=== PATIENT | male | born 1980 | race African-American/Black ===

== ENCOUNTER 2016-05-25 17:19 | Emergency (ER) | payer MEDICAID ==
[~2016-05-25] VITALS: Ht 180.3 cm; Wt 72.6 kg
[2016-05-25 17:32] VITALS: BP 154/74
[2016-05-25] MEDS ORDERED: Bacitracin Oint UD TOPIC ONE (18:00)
[2016-05-25] MEDS ORDERED: Lidocaine 1% MPF 10mg/ml 5ml IM ONE (18:00)
[2016-05-25 18:30] VITALS: BP 154/74
[2016-05-25] MEDS ORDERED: BACITRACIN15 GM TOPIC (18:32)
[2016-05-25] MEDS ORDERED: BACTRIM DS TAB1 EAC1 ORAL (18:39)
--- NOTE | 2016-05-25 20:35 | Emergency Room Report ---
History of Present Illness General Chief Complaint: Skin Rash/Abscess Source: Patient Present Illness [facility] The patient is a 35-year-old male presenting with right thumb pain. The patient has noticed increasing pain and swelling to this area which began 3 days prior. The patient has noticed discharge from the area described as white. The patient denies any injury to the thumb. Pain is described as a 7/ 10 dull ache and is worse with touch. Pain is nonradiating. The patient does admit to mild numbing of the area. The patient denies biting his nails but does admit to cleaning the cuticles. The patient denies this ever happening before. The patient denies nausea, vomiting, fever, chills, night sweats Allergies: Coded Allergies: No Known Allergies (Unverified , 05/25/16) Patient History Past Medical History: see triage record Pertinent Family History: none Reviewed Nursing Documentation: PMH: Agreed, PSxH: Agreed Nursing Documentation-PMH Past Medical History: No History, Except For Review of Systems All Other Systems: negative except mentioned in HPI Physical Exam Vital Signs Date Time Temp Pulse Resp B/P Pulse Ox O2 Delivery O2 Flow Rate FiO2 05/25/16 17:28 98.4 67 16 154/74 99 Room Air Sp02 EP Interpretation: reviewed, normal General Appearance: no apparent distress, alert, GCS 15, non-toxic Head: normocephalic, atraumatic Eyes: bilateral eye PERRL, bilateral eye normal inspection ENT: hearing grossly normal, normal pharynx, no angioedema, normal voice Musculoskeletal: back normal, gait/station normal, normal range of motion, swelling, tender - There is tenderness to palpation over the palmar surface of the distal right thumb Neurologic: alert, oriented x3, responsive, motor strength/tone normal, sensory intact, speech normal Psychiatric: judgement/insight normal, memory normal, mood/affect normal, no suicidal/homicidal ideation Skin: normal color, warm/dry, well hydrated, other - There is swelling and erythema noted to the distal right thumb, volar surface distal to the IP joint Lymphatic: no adenopathy Procedures Incision and Drainage Incision and Drainage : Consent: Verbal Site: R thumb Blade Size: 11 I & D Procedure: betadine prep, sterile drapes applied, sterile dressing applied Wound Location: upper extremity Wound's Depth, Shape: superficial Wound Length (cm): 3 Wound Explored: contaminated Irrigated w/ Saline (ccs): 100 Anesthesia: 1% Lidocaine Volume Anesthetic (ccs): 4 Splint Applied?: No Sling Applied?: No Patient Tolerated: Well Complications: None Medical Decision Making PA Attestation Dr. Bazan is my supervising physician. Patient management was discussed with my supervising physician Diagnostic Impression: Primary Impression: Felon of finger ER Course The pt is a 35 yo M presenting for R thumb infection Differential diagnosis considered: Felon, paronychia, sprain, gout PE: Afebrile. NAD There is tenderness to palpation, edema, and erythema of the right thumb palmar surface distal DIP joint. SILT Betadine prep was used to clean the skin and surrounding area. One percent lidocaine without epinephrine was used to anesthetize the are of planned incision. A #11 blade was used to make an incision in the central area of fluctuance approximately 1/3 the size of the diameter of the abscess. Once the incision was made, purulent material was expressed with blood. Blunt dissection was then used to release loculations and expressed more purulent material. Once only blood appeared to be expressed from the incision, normal saline was used to irrigate the inside of the abscess. The wound was then cleaned and sterile dressing applied with bacitracin Pt will be DC'ed home with prescription for bacitracin and bactrim DS. The patient will follow up with primary care doctor. ER precautions are given Last Vital Signs Date Time Temp Pulse Resp B/P Pulse Ox O2 Delivery O2 Flow Rate FiO2 05/25/16 18:59 98.4 05/25/16 18:30 67 16 154/74 99 Room Air Status: improved Disposition: HOME, SELF-CARE Condition: Improved Scripts Trimethoprim/Sulfamethoxazole 160/800* (BACTRIM DS TABLET*) 1 Each Tablet 1 TAB ORAL TWICE A DAY, #14 TAB Prov: TERZIAN,RODOLFO P.A. 05/25/16 Bacitracin (Bacitracin) 28.4 Gm Oint...g. 1 APPLIC TOPIC THREE TIMES A DAY, #28 GM Prov: TERZIAN,RODOLFO P.A. 05/25/16 Patient Instructions: Fingertip Infection Additional Instructions: I discussed my findings with the patient. All questions and concerns have been answered. Treatment and medication compliance have been addressed. I advised the patient that they need to follow up with PMD in 3-5 days. Return to ED if symptoms worsen, new symptoms arise, or if needed for any reason. Patient verbalized understanding of discharge instructions. The patient is advised to keep the incised region clean and dry. RODOLFO CARLSON May 25, 2016 20:35
== END 2016-05-25 18:30 | disposition home or self-care (01) ==
LOC: EMR 17:40
DX: L03.011 Cellulitis of right finger (principal)
CPT/HCPCS: 10060; 99284; Z7502

== ENCOUNTER 2017-08-25 06:58 | Inpatient (IN) | payer MEDICAID ==
[~2017-08-25] VITALS: Ht 180.3 cm; Wt 75.3 kg
[~2017-08-25 06:58] MED LIST: BACITRACIN15 GM TOPIC; BACTRIM DS TAB1 EAC1 ORAL
[2017-08-25] MEDS ORDERED: Isovue-300 100ml vial INJ PRN (07:15)
[2017-08-25] MEDS ORDERED: Morphine Sulfate 4mg/ml Inj IVP ONE ×3 (07:30→09:30)
--- NOTE | 2017-08-25 07:38 | Emergency Room Report ---
History of Present Illness General Chief Complaint: Abdominal Pain Source: Patient Present Illness HPI This patient states that last night he started having mild pain in his right lower abdomen. He states that since that time the pain has become more severe and has migrated into his epigastric region. He has had a little bit of nausea but no vomiting. He had a normal bowel movement today. That provided no relief. He denies fever or chills. He denies dysuria or hematuria. He has never had any similar symptoms. He is HIV positive and does have a viral load around 70,000. He also has a CD4 count just below 200. He states that he had taken a break on the HIV meds and had previously been undetectable. He states that he is back on his HIV meds because of the viral load and CD4 count. Otherwise he has no other complaints. He denies chest pain shortness of breath. He denies cough or congestion. He denies neck pain or headache. He denies back pain. He denies weakness. He has never had any AIDS defining illnesses. Allergies: Coded Allergies: No Known Allergies (Unverified , 05/25/16) Patient History Past Medical History: see triage record, HIV Past Surgical History: other - L. Inguinal hernia repair. Social History: Denies: smoking, alcohol use, drug use Reviewed Nursing Documentation: PMH: Agreed; PSxH: Agreed Review of Systems All Other Systems: negative except mentioned in HPI Physical Exam Vital Signs Date Time Temp Pulse Resp B/P (MAP) Pulse Ox O2 Delivery O2 Flow Rate FiO2 08/25/17 07:01 98.3 68 16 122/75 99 Room Air 98.2 Sp02 EP Interpretation: reviewed, normal General Appearance: no apparent distress, alert, GCS 15, non-toxic Head: normocephalic, atraumatic Eyes: bilateral eye normal inspection, bilateral eye PERRL ENT: hearing grossly normal, normal pharynx, no angioedema, normal voice Neck: full range of motion, supple/symm/no masses Respiratory: chest non-tender, lungs clear, normal breath sounds, speaking full sentences Cardiovascular #1: regular rate, rhythm, no edema Gastrointestinal: normal bowel sounds, non-distended, no rebound, guarding - voluntary gaurding, tenderness - TTP throughout, more severe in epigastrium Rectal: deferred Musculoskeletal: back normal, gait/station normal, normal range of motion, non- tender Neurologic: alert, oriented x3, responsive, motor strength/tone normal, sensory intact, speech normal Psychiatric: judgement/insight normal, memory normal, mood/affect normal, no suicidal/homicidal ideation Skin: normal color, no rash, warm/dry, well hydrated Medical Decision Making Diagnostic Impression: Primary Impression: Abdominal pain Additional Impression: Enteritis ER Course This patient presented with abdominal pain. He was quite tender on physical exam, so I felt that I should obtain a CT of his abdomen and pelvis. The CT showed some findings consistent with dilated small bowel loops and usually M. The extrahepatic bile ducts are dilated including the common Bile duct. The patient is also found to be thrombocytopenic with a borderline enlarged spleen. The patient continued to have severe pain requiring narcotic IV pain medications. I felt that this patient should be admitted for further monitoring and assessment by a curtain roller assembler and possibly a general surgeon. Patient is admitted to the medical surgical floor. Laboratory Tests Test 08/25/17 07:10 08/25/17 09:14 White Blood Count 4.5 K/UL (4.8-10.8) L Red Blood Count 5.00 M/UL (4.70-6.10) Hemoglobin 14.2 G/DL (14.2-18.0) Hematocrit 42.3 % (42.0-52.0) Mean Corpuscular Volume 85 FL (80-99) Mean Corpuscular Hemoglobin 28.4 PG (27.0-31.0) Mean Corpuscular Hemoglobin Concent 33.6 G/DL (32.0-36.0) Red Cell Distribution Width 12.3 % (11.6-14.8) Platelet Count 55 K/UL (150-450) L Mean Platelet Volume 10.5 FL (6.5-10.1) H Neutrophils (%) (Auto) % (45.0-75.0) Lymphocytes (%) (Auto) % (20.0-45.0) Monocytes (%) (Auto) % (1.0-10.0) Eosinophils (%) (Auto) % (0.0-3.0) Basophils (%) (Auto) % (0.0-2.0) Differential Total Cells Counted 100 Neutrophils % (Manual) 70 % (45-75) Lymphocytes % (Manual) 20 % (20-45) Monocytes % (Manual) 4 % (1-10) Eosinophils % (Manual) 4 % (0-3) H Basophils % (Manual) 1 % (0-2) Band Neutrophils 1 % (0-8) Platelet Estimate Decreased L Platelet Morphology Normal Red Blood Cell Morphology Normal Sodium Level 140 MMOL/L (136-145) Potassium Level 4.4 MMOL/L (3.5-5.1) Chloride Level 104 MMOL/L (98-107) Carbon Dioxide Level 29 MMOL/L (21-32) Anion Gap 7 mmol/L (5-15) Blood Urea Nitrogen 10 mg/dL (7-18) Creatinine 1.1 MG/DL (0.55-1.30) Estimate Glomerular Filtration Rate > 60 mL/min (>60) Glucose Level 141 MG/DL (74-106) H Calcium Level 8.7 MG/DL (8.5-10.1) Total Bilirubin 0.1 MG/DL (0.2-1.0) L Aspartate Amino Transferase (AST) 22 U/L (15-37) Alanine Aminotransferase (ALT) 26 U/L (12-78) Alkaline Phosphatase 62 U/L (46-116) Total Protein 8.0 G/DL (6.4-8.2) Albumin 3.8 G/DL (3.4-5.0) Globulin 4.2 g/dL Albumin/Globulin Ratio 0.9 (1.0-2.7) L Lipase 99 U/L (73-393) Urine Color Pale yellow Urine Appearance Clear Urine pH 5 (4.5-8.0) Urine Specific [place] 1.010 (1.005-1.035) Urine Protein Negative (NEGATIVE) Urine Glucose (UA) Negative (NEGATIVE) Urine Ketones Negative (NEGATIVE) Urine Occult Blood Negative (NEGATIVE) Urine Nitrite Negative (NEGATIVE) Urine Bilirubin Negative (NEGATIVE) Urine Urobilinogen Normal MG/DL (0.0-1.0) Urine Leukocyte Esterase Negative (NEGATIVE) CT/MRI/US Diagnostic Results CT/MRI/US Diagnostic Results : Imaging Test Ordered: CT abd/pelvis, US abdomen Impression See official reports in EMR. Findings consistent with enteritis and dilated extrahepatic ducts. Last Vital Signs Date Time Temp Pulse Resp B/P (MAP) Pulse Ox O2 Delivery O2 Flow Rate FiO2 08/25/17 07:01 98.3 68 16 122/75 99 Room Air 98.2 Disposition: ADMITTED INPATIENT Condition: Stable Referrals: NON PHYSICIAN (PCP) JIM BETTS D.O. August 25, 2017 07:37
[2017-08-25 07:48] LABS: HEMATOCRIT 42.3 % (42.0-52.0); HEMOGLOBIN 14.2 G/DL (14.2-18.0); MEAN CORPUSCULAR VOLUME 85 FL (80-99); PLATELET COUNT 55 K/UL (150-450); RED CELL DISTRIBUTION WIDTH 12.3 % (11.6-14.8); WHITE BLOOD COUNT 4.5 K/UL (4.8-10.8)
[2017-08-25 07:54] LABS: ANION GAP 7 mmol/L (5-15); BLOOD UREA NITROGEN 10 mg/dL (7-18); CALCIUM 8.7 MG/DL (8.5-10.1); CARBON DIOXIDE 29 MMOL/L (21-32); CHLORIDE 104 MMOL/L (98-107); CREATININE 1.1 MG/DL (0.55-1.30); POTASSIUM 4.4 MMOL/L (3.5-5.1); SODIUM 140 MMOL/L (136-145)
[2017-08-25 08:00] LABS: ALANINE AMINOTRANSFERASE 26 U/L (12-78); ALBUMIN 3.8 G/DL (3.4-5.0); ALBUMIN/GLOBULIN RATIO 0.9 (1.0-2.7); ALKALINE PHOSPHATASE 62 U/L (46-116); ASPARTATE AMINO TRANSFERASE 22 U/L (15-37); BILIRUBIN,TOTAL 0.1 MG/DL (0.2-1.0)
[2017-08-25] MEDS ORDERED: Ketorolac 30mg Inj IV ONE (08:15)
[2017-08-25 08:32] VITALS: BP 122/75
--- NOTE | 2017-08-25 08:59 | Diagnostic Imaging Report ---
Clinical Indication: Mild pain in his right lower abdomen. Nausea but no vomiting Technique: No oral contrast utilized, per emergency room physician request IV administration nonionic contrast. Venous phase spiral acquisition obtained through the abdomen and pelvis. Multiplanar reconstructions were generated. Total dose length product 579.83 mGycm. CTDIvol(s) 11.42 mGy. Dose reduction achieved using automated exposure control Comparison: none Findings: Lack of enteric contrast limits assessment of the GI tract. The appendix is normal. There is no evidence of diverticulosis or diverticulitis. There is a small amount of free intraperitoneal fluid, within the pelvis and adjacent to the tip of the right hepatic lobe Some bowel loops are slightly dilated. Although there are some nondilated small bowel loops, there is no definite transition to distal nondilated small bowel, and the terminal ileum is also somewhat dilated and contains some small bowel feces. No free intraperitoneal air. The distal esophagus, stomach, duodenum are unremarkable. The liver is borderline enlarged. No focal abnormality. The gallbladder is unremarkable. The extrahepatic bile ducts are dilated, common bile duct measuring 11 mm in diameter. No downstream obstructive lesion is demonstrated, however. The pancreas is unremarkable. The spleen is borderline enlarged, measuring 13 cm long axis dimension. The adrenals are unremarkable. The kidneys are unremarkable. No pelvic mass or adenopathy. No retroperitoneal or mesenteric mass or adenopathy. The included lung bases are clear. The bones are unremarkable Impression: Limited assessment of the GI tract, due to lack of enteric contrast administration Somewhat prominent fluid-filled small bowel loops. Small bowel feces in the terminal ileum suggests stasis of contrast. Findings are nonspecific, could represent mild enteritis Normal appendix Borderline hepatomegaly Borderline splenomegaly The CT scanner at [facility] is accredited by the [employer] and the scans are performed using protocols designed to limit radiation exposure to as low as reasonably achievable to attain images of sufficient resolution adequate for diagnostic evaluation.
[2017-08-25 09:23] LABS: APPEARANCE,URINE CLEAR; BILIRUBIN, URINE NEGATIVE (NEGATIVE); COLOR,URINE PALE YELLOW; GLUCOSE, URINE (UA) NEGATIVE (NEGATIVE); KETONES,URINE NEGATIVE (NEGATIVE); LEUKOCYTE ESTERASE ,URINE NEGATIVE (NEGATIVE); NITRITE,URINE NEGATIVE (NEGATIVE); PH,URINE 5 (4.5-8.0); PROTEIN,URINE NEGATIVE (NEGATIVE); UROBILINOGEN,URINE NORMAL MG/DL (0.0-1.0)
[2017-08-25 09:30] VITALS: BP 121/70
[2017-08-25 10:50] VITALS: BP 102/62
[2017-08-25] MEDS ORDERED: [UNRECOGNIZED DRUG - OTHER] (11:01)
--- NOTE | 2017-08-25 11:21 | Diagnostic Imaging Report ---
Indication: Epigastric pain and nausea Technique: Victoria-scale and duplex images of the upper abdomen were obtained Comparison: Abdomen pelvis CT earlier the same day Findings: There is a small amount of free intraperitoneal fluid noted. Gallbladder demonstrates no stones. The gallbladder wall thickness is upper limits of normal. No pericholecystic fluid Sonographic Smith's sign is negative. Common bile duct measures 9 mm in diameter. No intrahepatic biliary ductal dilatation. Liver demonstrates slightly coarsened echogenicity. Portal vein and hepatic veins are patent. Pancreas is unremarkable. Spleen is unremarkable. Left kidney measures 11.5 cm in length. Right kidney measures 11.6 cm length. Both kidneys demonstrate normal echogenicity. There is no hydronephrosis. There is suggestion of some cortical scarring of both kidneys . Non-aneurysmal abdominal aorta . Impression: Small amount of free intraperitoneal fluid, also demonstrated on recent CT scan Negative for gallstones Mildly dilated extra hepatic bile ducts, downstream obstruction not excludable. Consider MRCP for better characterization if clinically indicated Likely coarsened hepatic echotexture, could indicate hepatocellular disease
[2017-08-25 12:00] VITALS: BP 107/59
--- NOTE | 2017-08-25 12:59 | GI Initial Consult Note ---
History of Present Illness General Date patient seen: August 25, 2017 Time patient seen: 13:07 Reason for Hospitalization: Abdominal Pain Referring physician: NANDA Reason for Consultation: ABDOMINAL PAIN Present Illness HPI This patient states that last night he started having mild pain in his right lower abdomen. He states that since that time the pain has become more severe and has migrated into his epigastric region. He has had a little bit of nausea but no vomiting. He had a normal bowel movement today. That provided no relief. He denies fever or chills. He denies dysuria or hematuria. He has never had any similar symptoms. He is HIV positive and does have a viral load around 70,000. He also has a CD4 count just below 200. He states that he had taken a break on the HIV meds and had previously been undetectable. He states that he is back on his HIV meds because of the viral load and CD4 count. Otherwise he has no other complaints. He denies chest pain shortness of breath. He denies cough or congestion. He denies neck pain or headache. He denies back pain. He denies weakness. He has never had any AIDS defining illnesses. GI consulted for CBD dilation as seen on recent CT/US. Pt seen, awake A&Ox4 NAD c/o of new onset of abdominal pain 01/10, stated started last night. Denies any ETOH, IVDA, or tobacco use. Labs reviewed. No anemia. No transaminitis. Normal lipase levels. CT AP reviewed showed mildly dilated extra hepatic bile ducts, downstream obstruction not excludable. No history of endoscopy / colonoscopy. Home Meds Active Scripts Trimethoprim/Sulfamethoxazole 160/800* (BACTRIM DS TABLET*) 1 Each Tablet, 1 TAB ORAL TWICE A DAY, #14 TAB Prov:TERZIAN,RODOLFO P.A. 05/25/16 Bacitracin (Bacitracin) 28.4 Gm Oint...g., 1 APPLIC TOPIC THREE TIMES A DAY, # 28 GM Prov:TERZIAN,RODOLFO P.A. 05/25/16 Reported Medications [bictarvy] No Conflict Check, 1 DAILY 08/25/17 Med list reviewed/reconciled: Yes Allergies: Coded Allergies: No Known Allergies (Unverified , 05/25/16) Patient History History Provided By: Patient, Medical Record [facility] Narrative Past Medical History: see triage record, HIV Past Surgical History: other - L. Inguinal hernia repair. Social History: Denies: smoking, alcohol use, drug use Reviewed Nursing Documentation: PMH: Agreed; PSxH: Agreed Social History: Denies: smoking, alcohol use, drug use, other Review of Systems All Other Systems: negative except mentioned in HPI Physical Exam Vital Signs Date Time Temp Pulse Resp B/P (MAP) Pulse Ox O2 Delivery O2 Flow Rate FiO2 08/25/17 07:01 98.3 68 16 122/75 99 Room Air 98.2 Sp02 EP Interpretation: reviewed, normal Labs Laboratory Tests Test 08/25/17 07:10 08/25/17 07:15 08/25/17 09:14 White Blood Count 4.5 K/UL (4.8-10.8) L Red Blood Count 5.00 M/UL (4.70-6.10) Hemoglobin 14.2 G/DL (14.2-18.0) Hematocrit 42.3 % (42.0-52.0) Mean Corpuscular Volume 85 FL (80-99) Mean Corpuscular Hemoglobin 28.4 PG (27.0-31.0) Mean Corpuscular Hemoglobin Concent 33.6 G/DL (32.0-36.0) Red Cell Distribution Width 12.3 % (11.6-14.8) Platelet Count 55 K/UL (150-450) L Mean Platelet Volume 10.5 FL (6.5-10.1) H Neutrophils (%) (Auto) % (45.0-75.0) Lymphocytes (%) (Auto) % (20.0-45.0) Monocytes (%) (Auto) % (1.0-10.0) Eosinophils (%) (Auto) % (0.0-3.0) Basophils (%) (Auto) % (0.0-2.0) Differential Total Cells Counted 100 Neutrophils % (Manual) 70 % (45-75) Lymphocytes % (Manual) 20 % (20-45) Monocytes % (Manual) 4 % (1-10) Eosinophils % (Manual) 4 % (0-3) H Basophils % (Manual) 1 % (0-2) Band Neutrophils 1 % (0-8) Platelet Estimate Decreased L Platelet Morphology Normal Red Blood Cell Morphology Normal Sodium Level 140 MMOL/L (136-145) Potassium Level 4.4 MMOL/L (3.5-5.1) Chloride Level 104 MMOL/L (98-107) Carbon Dioxide Level 29 MMOL/L (21-32) Anion Gap 7 mmol/L (5-15) Blood Urea Nitrogen 10 mg/dL (7-18) Creatinine 1.1 MG/DL (0.55-1.30) Estimat Glomerular Filtration Rate > 60 mL/min (>60) Glucose Level 141 MG/DL (74-106) H Calcium Level 8.7 MG/DL (8.5-10.1) Total Bilirubin 0.1 MG/DL (0.2-1.0) L Aspartate Amino Transf (AST/SGOT) 22 U/L (15-37) Alanine Aminotransferase (ALT/SGPT) 26 U/L (12-78) Alkaline Phosphatase 62 U/L (46-116) Total Protein 8.0 G/DL (6.4-8.2) Albumin 3.8 G/DL (3.4-5.0) Globulin 4.2 g/dL Albumin/Globulin Ratio 0.9 (1.0-2.7) L Lipase 99 U/L (73-393) Prothrombin Time 10.4 SEC (9.30-11.50) Prothromb Time International Ratio 1.0 (0.9-1.1) Activated Partial Thromboplast Time 25 SEC (23-33) Urine Color Pale yellow Urine Appearance Clear Urine pH 5 (4.5-8.0) Urine Specific [place] 1.010 (1.005-1.035) Urine Protein Negative (NEGATIVE) Urine Glucose (UA) Negative (NEGATIVE) Urine Ketones Negative (NEGATIVE) Urine Occult Blood Negative (NEGATIVE) Urine Nitrite Negative (NEGATIVE) Urine Bilirubin Negative (NEGATIVE) Urine Urobilinogen Normal MG/DL (0.0-1.0) Urine Leukocyte Esterase Negative (NEGATIVE) General Appearance: well appearing, no apparent distress, alert Head: normocephalic EENT: PERRL/EOMI, normal ENT inspection Neck: supple Respiratory: normal breath sounds, no respiratory distress Cardiovascular: normal rate Gastrointestinal: normal inspection, non tender, soft, normal bowel sounds, non -distended Rectal: deferred Genitourinary: deferred Musculoskeletal: normal inspection, back normal Neurologic: normal inspection, alert, oriented x3, responsive Psychiatric: normal inspection, judgement/insight normal, memory normal Skin: normal inspection, normal color, no rash, warm/dry, palpation normal, well hydrated Lymphatic: normal inspection, no adenopathy Current Medications Current Medications Medications (Trade) Dose Ordered Sig/Melinda Route PRN Reason Start Time Stop Time Status Last Admin Dose Admin Iopamidol (Isovue-300 100ml) 100 ml NOW PRN INJ Radiology Procedure 08/25/17 07:15 Sodium Chloride 1,000 ml @ 100 mls/hr Q10H ONCE IV 08/25/17 07:14 08/25/17 17:13 08/25/17 07:21 GI: Plan Problems: (1) Dilated cbd, acquired (2) Abdominal pain (3) Enteritis Plan CT AP reviewed >> Small bowel feces in the terminal ileum suggests stasis of contrast. abdominal U/S reviewed >> Mildly dilated extra hepatic bile ducts, downstream obstruction not excludable. symptomatic treatment adv diet zofran prn pain mgmt bowel regime ppi repeat labs Discussed with Dr. Esquivel. Thank you for this patient referral, we will follow. The patient was seen and examined at bedside and all new and available data was reviewed in the patients chart. I agree with the above findings, impression and plan. (Patient seen earlier today. Signature stamp does not reflect patient encounter time.). - MD Juana Pham AnhLeonard MINOR August 25, 2017 12:59
[2017-08-25] MEDS ORDERED: LORazepam 1mg tab ORAL PRN (13:15)
[2017-08-25] MEDS ORDERED: HYDROcodone/Acetamin 10/325 tab ORAL PRN (13:15)
[2017-08-25] MEDS ORDERED: Morphine Sulfate 4mg/ml Inj IVP PRN (13:30)
--- NOTE | 2017-08-25 15:08 | History and Physical ---
History of Present Illness General Date patient seen: August 25, 2017 Time patient seen: 12:00 Reason for Hospitalization: Abdominal Pain Present Illness HPI 36 y/o male with a PMH of HIV now AIDS with CD4 count less than 200 who presented to the ED for severe abdominal pain. Patient states that the pain started this morning on the RUQ area radiating to the left epigastric are . Reports nausea but no vomiting. CT a/p showed somewhat prominent fluid-filled small bowel loops. CBD 11mm. Normal appendix, borderline hepatomegaly and splenomegaly. Abdominal ultrassound was also done with results pending. Patient was further admitted. Denies chest pain, sob, f/c. He also states that he has been diagnosed with HIV since age 18 but was off of his HIV medications for the last 4 years. He states he recently got back on them and his recent CD4 count a month ago was less than 200 and started taking bactrim prophylactically. Allergies: Coded Allergies: No Known Allergies (Unverified , 05/25/16) Medication History Scheduled Bacitracin (Bacitracin), 1 APPLIC TOPIC THREE TIMES A DAY Trimethoprim/Sulfamethoxazole 160/800* (Bactrim Ds Tablet*), 1 TAB ORAL TWICE A DAY [bictarvy], 1 DAILY, (Reported) Patient History History Provided By: Patient Healthcare decision maker Resuscitation status Full Code Advanced Directive on File Review of Systems All Other Systems: negative except mentioned in HPI Physical Exam General Appearance: alert, moderate distress HEENT: normocephalic, atraumatic, PERRL Neck: non-tender, normal alignment, supple Respiratory/Chest: chest wall non-tender, lungs clear, normal breath sounds Cardiovascular/Chest: normal peripheral pulses, normal rate Abdomen: hypoactive bowel sounds, guarding, tender Extremities: normal range of motion, non-tender Skin Exam: normal pigmentation, warm/dry 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, no motor/sensory deficits, alert, oriented x 3 Last 24 Hour Vital Signs Date Time Temp Pulse Resp B/P (MAP) Pulse Ox O2 Delivery O2 Flow Rate FiO2 08/25/17 12:00 97.9 58 20 107/59 100 Room Air 97.9 08/25/17 11:08 98.0 70 16 102/62 100 Room Air 98.0 08/25/17 10:50 98.0 70 16 102/62 100 Room Air 98.0 08/25/17 09:37 36.8 08/25/17 09:36 36.8 08/25/17 09:36 98.3 08/25/17 09:36 36.8 08/25/17 09:36 98.3 08/25/17 09:30 98.0 72 17 121/70 100 Room Air 98.0 08/25/17 08:32 16 122/75 99 Room Air 08/25/17 08:32 98.3 08/25/17 08:32 98.3 08/25/17 07:43 98.3 08/25/17 07:01 98.3 68 16 122/75 99 Room Air 98.2 Laboratory Tests Test 08/25/17 07:10 08/25/17 07:15 08/25/17 09:14 White Blood Count 4.5 K/UL (4.8-10.8) L Red Blood Count 5.00 M/UL (4.70-6.10) Hemoglobin 14.2 G/DL (14.2-18.0) Hematocrit 42.3 % (42.0-52.0) Mean Corpuscular Volume 85 FL (80-99) Mean Corpuscular Hemoglobin 28.4 PG (27.0-31.0) Mean Corpuscular Hemoglobin Concent 33.6 G/DL (32.0-36.0) Red Cell Distribution Width 12.3 % (11.6-14.8) Platelet Count 55 K/UL (150-450) L Mean Platelet Volume 10.5 FL (6.5-10.1) H Neutrophils (%) (Auto) % (45.0-75.0) Lymphocytes (%) (Auto) % (20.0-45.0) Monocytes (%) (Auto) % (1.0-10.0) Eosinophils (%) (Auto) % (0.0-3.0) Basophils (%) (Auto) % (0.0-2.0) Differential Total Cells Counted 100 Neutrophils % (Manual) 70 % (45-75) Lymphocytes % (Manual) 20 % (20-45) Monocytes % (Manual) 4 % (1-10) Eosinophils % (Manual) 4 % (0-3) H Basophils % (Manual) 1 % (0-2) Band Neutrophils 1 % (0-8) Platelet Estimate Decreased L Platelet Morphology Normal Red Blood Cell Morphology Normal Sodium Level 140 MMOL/L (136-145) Potassium Level 4.4 MMOL/L (3.5-5.1) Chloride Level 104 MMOL/L (98-107) Carbon Dioxide Level 29 MMOL/L (21-32) Anion Gap 7 mmol/L (5-15) Blood Urea Nitrogen 10 mg/dL (7-18) Creatinine 1.1 MG/DL (0.55-1.30) Estimat Glomerular Filtration Rate > 60 mL/min (>60) Glucose Level 141 MG/DL (74-106) H Calcium Level 8.7 MG/DL (8.5-10.1) Total Bilirubin 0.1 MG/DL (0.2-1.0) L Aspartate Amino Transf (AST/SGOT) 22 U/L (15-37) Alanine Aminotransferase (ALT/SGPT) 26 U/L (12-78) Alkaline Phosphatase 62 U/L (46-116) Creatine Kinase MB 0.6 NG/ML (0.0-3.6) Total Protein 8.0 G/DL (6.4-8.2) Albumin 3.8 G/DL (3.4-5.0) Globulin 4.2 g/dL Albumin/Globulin Ratio 0.9 (1.0-2.7) L Lipase 99 U/L (73-393) Prothrombin Time 10.4 SEC (9.30-11.50) Prothromb Time International Ratio 1.0 (0.9-1.1) Activated Partial Thromboplast Time 25 SEC (23-33) Urine Color Pale yellow Urine Appearance Clear Urine pH 5 (4.5-8.0) Urine Specific [place] 1.010 (1.005-1.035) Urine Protein Negative (NEGATIVE) Urine Glucose (UA) Negative (NEGATIVE) Urine Ketones Negative (NEGATIVE) Urine Occult Blood Negative (NEGATIVE) Urine Nitrite Negative (NEGATIVE) Urine Bilirubin Negative (NEGATIVE) Urine Urobilinogen Normal MG/DL (0.0-1.0) Urine Leukocyte Esterase Negative (NEGATIVE) Height (Feet): 5 Height (Inches): 11.00 Weight (Pounds): 166 Medications Current Medications Medications (Trade) Dose Ordered Sig/Melinda Route PRN Reason Start Time Stop Time Status Last Admin Dose Admin Acetaminophen (Tylenol) 650 mg Q4H PRN ORAL fever 5/25/18 13:15 09/24/17 13:14 Acetaminophen/ Hydrocodone Bitart ([place] 10/325) 1 tab Q4H PRN ORAL Moderate Pain (Pain Scale 4-6) 08/25/17 13:15 09/01/17 13:14 Dextrose (Dextrose 50%) 25 ml STAT PRN IV Hypoglycemia 08/25/17 13:15 09/24/17 13:14 Dextrose (Dextrose 50%) 50 ml STAT PRN IV Hypoglycemia 08/25/17 13:15 09/24/17 13:14 Iopamidol (Isovue-300 100ml) 100 ml NOW PRN INJ Radiology Procedure 08/25/17 07:15 08/27/17 23:59 Lorazepam (Ativan) 1 mg Q4H PRN ORAL For Anxiety 08/25/17 13:15 09/01/17 13:14 Morphine Sulfate (Morphine Sulfate) 4 mg Q4H PRN IVP Severe Pain (Pain Scale 7-10) 08/25/17 13:30 09/01/17 13:29 08/25/17 13:40 Non-Formulary Medication (Non-Formulary Med) 1 ea DAILY ORAL 08/26/17 09:00 09/25/17 08:59 UNV Ondansetron HCl (Zofran) 4 mg Q6H PRN IVP Nausea & Vomiting 08/25/17 13:30 09/24/17 13:29 Polyethylene Glycol (Miralax) 17 gm BEDTIME ORAL 08/25/17 21:00 09/24/17 20:59 Sodium Chloride 1,000 ml @ 100 mls/hr Q10H IVLG 08/25/17 14:00 09/24/17 13:59 08/25/17 14:21 Sodium Chloride 1,000 ml @ 100 mls/hr Q10H ONCE IV 08/25/17 07:14 08/25/17 17:13 08/25/17 07:21 Trimethoprim/ Sulfamethoxazole (Bactrim-DS) 1 tab 3XW ORAL 08/28/17 09:00 09/04/17 08:59 Assessment/Plan Problem List: (1) Enteritis ICD Codes: K52.9 - Noninfective gastroenteritis and colitis, unspecified SNOMED: 07359588 (2) Abdominal pain ICD Codes: R10.9 - Unspecified abdominal pain SNOMED: 20430756 (3) Dilated cbd, acquired ICD Codes: K83.8 - Other specified diseases of biliary tract SNOMED: 404128159 (4) Thrombocytopenia associated with AIDS ICD Codes: B20 - Human immunodeficiency virus [HIV] disease; D69.59 - Other secondary thrombocytopenia SNOMED: 971383196 Status: stable, progressing Assessment/Plan - Admit to inpatient - 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 Borderline hepatomegaly, splenomegaly. CBD 11mm. - f/u abdominal U/S - LFTs and t. bili normal. continue to monitor - pain control and supportive care - zofran prn - IVF - CLD and ADAT - continue home HIV meds. Continue bactrim for ppx - check CD4 count - monitor plt. avoid HSQ DVT Prophylaxis: SCD Code Status: Full Hospital Classification Declaration: Based on this initial evaluation, and depending on the patient's clinical course, I anticipate that this patient will require hospitalization for 2-3 days for severe abd pain, CBD and close respiratory/hemodynamic monitoring. Disposition: Once the patient is stable to leave the hospital, I anticipate the patient will likely be discharged to the following environment: home I spent 71 minutes on this patient's case, and [45 minutes were dedicated to counseling and/or care coordination. Discussed with patient/family, nursing staff, SW/CM, general surgery, GI, nuclear reactor operator regarding clinical status, treatment course, and disposition planning. Time of note may not reflect time of encounter. Glenny Ybarra NP August 25, 2017 15:08
[2017-08-25 16:00] VITALS: BP 120/69
[2017-08-25 20:00] VITALS: BP 124/75
[2017-08-25] MEDS: Miralax 17gm pkt ORAL SCH (20:43)
[2017-08-25] MEDS: Bactrim-DS 1 tab ORAL SCH (21:09)
[2017-08-26] VITALS: BP 102/50
[2017-08-26 03:57] VITALS: BP 149/84
[2017-08-26 08:00] VITALS: BP 110/62
[2017-08-26 08:04] LABS: HEMATOCRIT 38.7 % (42.0-52.0); HEMOGLOBIN 13.6 G/DL (14.2-18.0); MEAN CORPUSCULAR VOLUME 83 FL (80-99); PLATELET COUNT 70 K/UL (150-450); RED BLOOD COUNT 4.68 M/UL (4.70-6.10); RED CELL DISTRIBUTION WIDTH 11.9 % (11.6-14.8); WHITE BLOOD COUNT 2.7 K/UL (4.8-10.8)
[2017-08-26 08:36] LABS: ALANINE AMINOTRANSFERASE 22 U/L (12-78); ALBUMIN 2.9 G/DL (3.4-5.0); ALBUMIN/GLOBULIN RATIO 0.8 (1.0-2.7); ALKALINE PHOSPHATASE 53 U/L (46-116); ANION GAP 7 mmol/L (5-15); ASPARTATE AMINO TRANSFERASE 16 U/L (15-37); BILIRUBIN,TOTAL 0.1 MG/DL (0.2-1.0); BLOOD UREA NITROGEN 15 mg/dL (7-18); CARBON DIOXIDE 27 MMOL/L (21-32); CHLORIDE 106 MMOL/L (98-107); CREATININE 1.1 MG/DL (0.55-1.30); POTASSIUM 3.7 MMOL/L (3.5-5.1); SODIUM 140 MMOL/L (136-145)
[2017-08-26 12:00] VITALS: BP 112/64
--- NOTE | 2017-08-26 14:18 | Internal Med Progress Note ---
Subjective Physician Name BladimirWilmer kramer Attending Physician Bibiana Wen MD Current Medications Medications (Trade) Dose Ordered Sig/Melinda Route PRN Reason Start Time Stop Time Status Last Admin Dose Admin Acetaminophen (Tylenol) 650 mg Q4H PRN ORAL fever 08/25/17 13:15 09/24/17 13:14 Acetaminophen/ Hydrocodone Bitart ([place] 10/325) 1 tab Q4H PRN ORAL Moderate Pain (Pain Scale 4-6) 08/25/17 13:15 09/01/17 13:14 Dextrose (Dextrose 50%) 25 ml STAT PRN IV Hypoglycemia 08/25/17 13:15 09/24/17 13:14 Dextrose (Dextrose 50%) 50 ml STAT PRN IV Hypoglycemia 08/25/17 13:15 09/24/17 13:14 Iopamidol (Isovue-300 100ml) 100 ml NOW PRN INJ Radiology Procedure 08/25/17 07:15 08/27/17 23:59 Lorazepam (Ativan) 1 mg Q4H PRN ORAL For Anxiety 08/25/17 13:15 09/01/17 13:14 Morphine Sulfate (Morphine Sulfate) 4 mg Q4H PRN IVP Severe Pain (Pain Scale 7-10) 08/25/17 13:30 09/01/17 13:29 08/25/17 13:40 Ondansetron HCl (Zofran) 4 mg Q6H PRN IVP Nausea & Vomiting 08/25/17 13:30 09/24/17 13:29 Patient Own Medication (Patient's Own Med) 1 ea QHS ORAL 08/25/17 22:00 09/24/17 21:59 08/25/17 21:22 Polyethylene Glycol (Miralax) 17 gm BEDTIME ORAL 08/25/17 21:00 09/24/17 20:59 08/25/17 20:43 Sodium Chloride 1,000 ml @ 100 mls/hr Q10H IVLG 08/25/17 14:00 09/24/17 13:59 08/26/17 10:32 Trimethoprim/ Sulfamethoxazole (Bactrim-DS) 1 tab 3XW ORAL 08/25/17 22:00 09/01/17 21:59 08/25/17 21:09 Allergies: Coded Allergies: No Known Allergies (Unverified , 05/25/16) Objective Last Vital Signs Date Time Temp Pulse Resp B/P (MAP) Pulse Ox O2 Delivery O2 Flow Rate FiO2 08/26/17 12:00 98.4 79 18 112/64 99 Room Air 98.4 Laboratory Tests Test 08/26/17 06:30 White Blood Count Pending Red Blood Count 4.68 M/UL (4.70-6.10) L Hemoglobin 13.6 G/DL (14.2-18.0) L Hematocrit 38.7 % (42.0-52.0) L Mean Corpuscular Volume 83 FL (80-99) Mean Corpuscular Hemoglobin 29.0 PG (27.0-31.0) Mean Corpuscular Hemoglobin Concent 35.1 G/DL (32.0-36.0) Red Cell Distribution Width 11.9 % (11.6-14.8) Platelet Count 70 K/UL (150-450) L Mean Platelet Volume 8.9 FL (6.5-10.1) Neutrophils (%) (Auto) % (45.0-75.0) Lymphocytes (%) (Auto) % (20.0-45.0) Monocytes (%) (Auto) % (1.0-10.0) Eosinophils (%) (Auto) % (0.0-3.0) Basophils (%) (Auto) % (0.0-2.0) Differential Total Cells Counted 100 Neutrophils % (Manual) 47 % (45-75) Lymphocytes % (Manual) 40 % (20-45) Monocytes % (Manual) 6 % (1-10) Eosinophils % (Manual) 7 % (0-3) H Basophils % (Manual) 0 % (0-2) Band Neutrophils 0 % (0-8) Lymphocytes Pending Platelet Estimate Decreased L Platelet Morphology Normal Sodium Level 140 MMOL/L (136-145) Potassium Level 3.7 MMOL/L (3.5-5.1) Chloride Level 106 MMOL/L (98-107) Carbon Dioxide Level 27 MMOL/L (21-32) Anion Gap 7 mmol/L (5-15) Blood Urea Nitrogen 15 mg/dL (7-18) Creatinine 1.1 MG/DL (0.55-1.30) Estimat Glomerular Filtration Rate > 60 mL/min (>60) Glucose Level 105 MG/DL (74-106) Calcium Level 8.0 MG/DL (8.5-10.1) L Total Bilirubin 0.1 MG/DL (0.2-1.0) L Aspartate Amino Transf (AST/SGOT) 16 U/L (15-37) Alanine Aminotransferase (ALT/SGPT) 22 U/L (12-78) Alkaline Phosphatase 53 U/L (46-116) Total Protein 6.5 G/DL (6.4-8.2) Albumin 2.9 G/DL (3.4-5.0) L Globulin 3.6 g/dL Albumin/Globulin Ratio 0.8 (1.0-2.7) L Percent CD3 Cells Pending Absolute CD3 Count Pending Percent CD4 Cells Pending Absolute CD4 Count Pending T-Lymphocyte CD4/CD8 Ratio Pending Percent CD8 Cells Pending Absolute CD8 Count Pending Microbiology Date/Time Source Procedure Growth Status 08/25/17 16:18 Urine,Clean Catch Urine Culture - Preliminary NO GROWTH Resulted Intake and Output 08/25/17 08/26/17 19:00 07:00 Intake Total 540 ml 1200 ml Output Total 1300 ml Balance 540 ml -100 ml Intake Oral 140 ml IV Total 400 ml 1200 ml Output Urine Total 1300 ml # Voids 3 1 Assessment/Plan Assessment/Plan No Known Allergies (Unverified , 05/25/16) Medication History Scheduled Bacitracin (Bacitracin), 1 APPLIC TOPIC THREE TIMES A DAY Trimethoprim/Sulfamethoxazole 160/800* (Bactrim Ds Tablet*), 1 TAB ORAL TWICE A DAY [bictarvy], 1 DAILY, (Reported) Patient History History Provided By: Patient Healthcare decision maker Resuscitation status Full Code Advanced Directive on File ROS Review of Systems All Other Systems: negative except mentioned in HPI Physical Exam Physical Exam General Appearance: alert, moderate distress HEENT: normocephalic, atraumatic, PERRL Neck: non-tender, normal alignment, supple Respiratory/Chest: chest wall non-tender, lungs clear, normal breath sounds Cardiovascular/Chest: normal peripheral pulses, normal rate Abdomen: hypoactive bowel sounds, guarding, tender Extremities: normal range of motion, non-tender Skin Exam: normal pigmentation, warm/dry 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, no motor/sensory deficits, alert, oriented x 3 Last 24 Hour Vital Signs Date Time Temp Pulse Resp B/P (MAP) Pulse Ox O2 Delivery O2 Flow Rate FiO2 08/25/17 12:00 97.9 58 20 107/59 100 Room Air 97.9 08/25/17 11:08 98.0 70 16 102/62 100 Room Air 98.0 08/25/17 10:50 98.0 70 16 102/62 100 Room Air 98.0 08/25/17 09:37 36.8 08/25/17 09:36 36.8 08/25/17 09:36 98.3 08/25/17 09:36 36.8 08/25/17 09:36 98.3 08/25/17 09:30 98.0 72 17 121/70 100 Room Air 98.0 08/25/17 08:32 16 122/75 99 Room Air 08/25/17 08:32 98.3 08/25/17 08:32 98.3 08/25/17 07:43 98.3 08/25/17 07:01 98.3 68 16 122/75 99 Room Air 98.2 Laboratory Tests Test 08/25/17 07:10 08/25/17 07:15 08/25/17 09:14 White Blood Count 4.5 K/UL (4.8-10.8) L Red Blood Count 5.00 M/UL (4.70-6.10) Hemoglobin 14.2 G/DL (14.2-18.0) Hematocrit 42.3 % (42.0-52.0) Mean Corpuscular Volume 85 FL (80-99) Mean Corpuscular Hemoglobin 28.4 PG (27.0-31.0) Mean Corpuscular Hemoglobin Concent 33.6 G/DL (32.0-36.0) Red Cell Distribution Width 12.3 % (11.6-14.8) Platelet Count 55 K/UL (150-450) L Mean Platelet Volume 10.5 FL (6.5-10.1) H Neutrophils (%) (Auto) % (45.0-75.0) Lymphocytes (%) (Auto) % (20.0-45.0) Monocytes (%) (Auto) % (1.0-10.0) Eosinophils (%) (Auto) % (0.0-3.0) Basophils (%) (Auto) % (0.0-2.0) Differential Total Cells Counted 100 Neutrophils % (Manual) 70 % (45-75) Lymphocytes % (Manual) 20 % (20-45) Monocytes % (Manual) 4 % (1-10) Eosinophils % (Manual) 4 % (0-3) H Basophils % (Manual) 1 % (0-2) Band Neutrophils 1 % (0-8) Platelet Estimate Decreased L Platelet Morphology Normal Red Blood Cell Morphology Normal Sodium Level 140 MMOL/L (136-145) Potassium Level 4.4 MMOL/L (3.5-5.1) Chloride Level 104 MMOL/L (98-107) Carbon Dioxide Level 29 MMOL/L (21-32) Anion Gap 7 mmol/L (5-15) Blood Urea Nitrogen 10 mg/dL (7-18) Creatinine 1.1 MG/DL (0.55-1.30) Estimat Glomerular Filtration Rate > 60 mL/min (>60) Glucose Level 141 MG/DL (74-106) H Calcium Level 8.7 MG/DL (8.5-10.1) Total Bilirubin 0.1 MG/DL (0.2-1.0) L Aspartate Amino Transf (AST/SGOT) 22 U/L (15-37) Alanine Aminotransferase (ALT/SGPT) 26 U/L (12-78) Alkaline Phosphatase 62 U/L (46-116) Creatine Kinase MB 0.6 NG/ML (0.0-3.6) Total Protein 8.0 G/DL (6.4-8.2) Albumin 3.8 G/DL (3.4-5.0) Globulin 4.2 g/dL Albumin/Globulin Ratio 0.9 (1.0-2.7) L Lipase 99 U/L (73-393) Prothrombin Time 10.4 SEC (9.30-11.50) Prothromb Time International Ratio 1.0 (0.9-1.1) Activated Partial Thromboplast Time 25 SEC (23-33) Urine Color Pale yellow Urine Appearance Clear Urine pH 5 (4.5-8.0) Urine Specific [place] 1.010 (1.005-1.035) Urine Protein Negative (NEGATIVE) Urine Glucose (UA) Negative (NEGATIVE) Urine Ketones Negative (NEGATIVE) Urine Occult Blood Negative (NEGATIVE) Urine Nitrite Negative (NEGATIVE) Urine Bilirubin Negative (NEGATIVE) Urine Urobilinogen Normal MG/DL (0.0-1.0) Urine Leukocyte Esterase Negative (NEGATIVE) Height (Feet): 5 Height (Inches): 11.00 Weight (Pounds): 166 Medications Current Medications Medications (Trade) Dose Ordered Sig/Melinda Route PRN Reason Start Time Stop Time Status Last Admin Dose Admin Acetaminophen (Tylenol) 650 mg Q4H PRN ORAL fever 08/25/17 13:15 09/24/17 13:14 Acetaminophen/ Hydrocodone Bitart ([place] [address]) 1 tab Q4H PRN ORAL Moderate Pain (Pain Scale 4-6) 08/25/17 13:15 09/01/17 13:14 Dextrose (Dextrose 50%) 25 ml STAT PRN IV Hypoglycemia 08/25/17 13:15 09/24/17 13:14 Dextrose (Dextrose 50%) 50 ml STAT PRN IV Hypoglycemia 08/25/17 13:15 09/24/17 13:14 Iopamidol (Isovue-300 100ml) 100 ml NOW PRN INJ Radiology Procedure 08/25/17 07:15 08/27/17 23:59 Lorazepam (Ativan) 1 mg Q4H PRN ORAL For Anxiety 08/25/17 13:15 09/01/17 13:14 Morphine Sulfate (Morphine Sulfate) 4 mg Q4H PRN IVP Severe Pain (Pain Scale 7-10) 08/25/17 13:30 09/01/17 13:29 08/25/17 13:40 Non-Formulary Medication (Non-Formulary Med) 1 ea DAILY ORAL 08/26/17 09:00 09/25/17 08:59 UNV Ondansetron HCl (Zofran) 4 mg Q6H PRN IVP Nausea & Vomiting 08/25/17 13:30 09/24/17 13:29 Polyethylene Glycol (Miralax) 17 gm BEDTIME ORAL 08/25/17 21:00 09/24/17 20:59 Sodium Chloride 1,000 ml @ 100 mls/hr Q10H IVLG 08/25/17 14:00 09/24/17 13:59 08/25/17 14:21 Sodium Chloride 1,000 ml @ 100 mls/hr Q10H ONCE IV 08/25/17 07:14 08/25/17 17:13 08/25/17 07:21 Trimethoprim/ Sulfamethoxazole (Bactrim-DS) 1 tab 3XW ORAL 08/28/17 09:00 09/04/17 08:59 Assessment/Plan Assessment/Plan Problem List: (1) Enteritis ICD Codes: K52.9 - Noninfective gastroenteritis and colitis, unspecified SNOMED: 84942824 (2) Abdominal pain ICD Codes: R10.9 - Unspecified abdominal pain SNOMED: 90211035 (3) Dilated cbd, acquired ICD Codes: K83.8 - Other specified diseases of biliary tract SNOMED: 233480222 (4) Thrombocytopenia associated with AIDS ICD Codes: B20 - Human immunodeficiency virus [HIV] disease; D69.59 - Other secondary thrombocytopenia SNOMED: 219270547 Status: stable, progressing Assessment/Plan - 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 Borderline hepatomegaly, splenomegaly. CBD 11mm. - f/u abdominal U/S - LFTs and t. bili normal. continue to monitor - pain control and supportive care - zofran prn - IVF - CLD and ADAT - continue home HIV meds. Continue bactrim for ppx - check CD4 count - monitor plt. avoid HSQ DVT Prophylaxis: SCD Code Status: Full Hospital Classification Declaration: Based on this initial evaluation, and depending on the patient's clinical course, I anticipate that this patient will require hospitalization for 2-3 days for severe abd pain, CBD and close respiratory/hemodynamic monitoring. Disposition: Once the patient is stable to leave the hospital, I anticipate the patient will likely be discharged to the following environment: home Wilmer Linn M.D. August 26, 2017 14:18
[2017-08-26 14:37] LABS: INR 1.1 (0.9-1.1)
[2017-08-26 15:15] LABS: FERRITIN 72 NG/ML (8-388); LACTATE DEHYDROGENASE 130 U/L (81-234)
[2017-08-26 15:26] LABS: % IRON SATURATION 23 % (15-50); IRON 50 ug/dL (50-175); TOTAL IRON BINDING CAPACITY 215 ug/dL (250-450)
[2017-08-26 16:00] VITALS: BP 116/60
[2017-08-26 20:00] VITALS: BP 100/63
[2017-08-26] MEDS: Miralax 17gm pkt ORAL SCH (20:28)
--- NOTE | 2017-08-26 23:15 | Consultation ---
DATE OF CONSULTATION: 08/26/2017 "NOTE: POOR AUDIO QUALITY" HEMATOLOGY/ONCOLOGY CONSULTATION CONSULTING PHYSICIAN: Virgil Vines M.D. REQUESTING PHYSICIAN: Bibiana Wen M.D. REASON FOR CONSULTATION: Evaluation of splenomegaly for this patient. IDENTIFICATION DATA: Dear Dr. Wen as well as Dr. Marcellus Meyer, The patient is a pleasant 36-year-old male with past medical history significant for CD4, AIDS, and HIV. CD4 count less than 200. At this time, he presents to the ER with worsening abdominal pain and with worsening nausea. CAT scan of the abdomen and pelvis showed small bowel loops, common bile duct 11 mm, and borderline hepatomegaly and splenomegaly. Ultrasound results are pending at this time. Denies any shortness of breath HIV since the age of 18, has been off of HIV meds for the past several years. He has been taking Bactrim prophylactically. Hematology Service consulted for further evaluation and treatment. PAST MEDICAL HISTORY: As noted above. MEDICATIONS: Bactrim bacitracin REVIEW OF SYSTEMS: CONSTITUTIONAL: No fevers, chills, or night sweats. SKIN: No rashes, bumps, or itching. HEENT: No headache, hearing, or vision changes. BREASTS: No lumps, pain, or discharge. PULMONARY: No cough, sputum, or shortness of breath. GASTROINTESTINAL: No nausea, vomiting, or diarrhea. GENITOURINARY: No dysuria, frequency, or urgency. MUSCULOSKELETAL: No joint swelling, muscle pain, or trauma. PHYSICAL EXAMINATION: VITAL SIGNS: Reviewed. GENERAL: No distress. PULMONARY: Decreased breath sounds. Some crackles noted. CARDIOVASCULAR: Regular rate. No S3 or S4. ABDOMEN: Soft, nontender, and nondistended. Positive bowel sounds. EXTREMITIES: 1+ edema. LABORATORY AND DIAGNOSTIC DATA: WBC 2.7, hemoglobin 13.6, hematocrit 39, platelet count 70,000, and eosinophils 7%. INR of 1. BUN of 15 and creatinine 1.1. Immunology and CD4 count pending. ASSESSMENT AND RECOMMENDATIONS: 1. Splenomegaly, multiple causes are possible. Potentially, this could be from either infection and/or history of cirrhosis, although the patient does have human immunodeficiency virus. The patient may have splenomegaly due to viral infection. Consider to obtain Infectious Disease evaluation. Unlikely, the patient has no evidence of leukemia or lymphoma. The patient has a very poor control of underlying human immunodeficiency virus/acquired immunodeficiency syndrome. 2. Pancytopenia, likely related to underlying human immunodeficiency virus/acquired immunodeficiency syndrome. Also, rule out lymphoma in the outpatient setting. The patient's splenomegaly at this time is mild to moderate. The patient noted to have deep vein thrombosis. The patient's splenomegaly could be related to underlying human immunodeficiency virus. 3. Human immunodeficiency virus/acquired immunodeficiency syndrome. Consider to obtain Infectious Disease evaluation. Continue the patient on Bactrim, but that can also contribute to the patient's splenomegaly. 4. Anemia due to underlying chronic disease. Closely monitor for improvement. 5. Decreased CD4 count, likely related to underlying human immunodeficiency virus/acquired immunodeficiency syndrome. 6. Enteritis. Bowel regimen . I appreciate consultation. Virgil Vines M.D. DR: Mor JOB#: [id number] CC:
[2017-08-27] VITALS: BP 111/63
[2017-08-27 08:00] VITALS: BP 106/56
[2017-08-27 12:00] VITALS: BP 111/65
--- NOTE | 2017-08-27 12:38 | General Progress Note ---
Assessment/Plan Assessment/Plan 1. Splenomegaly, multiple causes are possible. Potentially, this could be from either infection and/or history of cirrhosis, most likely from HIV but must rule out other causes --> Consider to obtain Infectious Disease evaluation. Unlikely leukemia or lymphoma. --> The patient has a very poor control of underlying human immunodeficiency virus/acquired immunodeficiency syndrome. 2. Pancytopenia, likely related to underlying human immunodeficiency virus/ acquired immunodeficiency syndrome. Also, rule out lymphoma in the outpatient setting. The patient's splenomegaly at this time is mild to moderate. Likely hiv related 3. Human immunodeficiency virus/acquired immunodeficiency syndrome. Consider to obtain Infectious Disease evaluation. Continue the patient on Bactrim, but that can also contribute to the patient's splenomegaly. 4. Anemia due to underlying chronic disease. Closely monitor for improvement. 5. Decreased CD4 count, likely related to underlying human immunodeficiency virus/acquired immunodeficiency syndrome. 6. Enteritis. Bowel regimen prn Subjective Date patient seen: August 27, 2017 Constitutional: Denies: no symptoms, chills, diaphoresis, fever, malaise, weakness, other HEENT: Denies: no symptoms, eye pain, blurred vision, tearing, double vision, ear pain, ear discharge, nose pain, nose congestion, throat pain, throat swelling, mouth pain, mouth swelling, other Cardiovascular: Denies: no symptoms, chest pain, edema, irregular heart rate, lightheadedness, palpitations, syncope, other Respiratory: Denies: no symptoms, cough, orthopnea, shortness of breath, SOB with excertion, SOB at rest, sputum, stridor, wheezing, other Gastrointestinal/Abdominal: Denies: no symptoms, abdomen distended, abdominal pain, black stools, tarry stools, blood in stool, constipated, diarrhea, difficulty swallowing, nausea, poor appetite, poor fluid intake, rectal bleeding , vomiting, other Genitourinary: Denies: no symptoms, burning, discharge, frequency, flank pain, hematuria, incontinence, pain, urgency, other Neurologic/Psychiatric: Denies: no symptoms, anxiety, depressed, emotional problems, headache, numbness, paresthesia, pre-existing deficit, seizure, tingling, tremors, weakness, other Endocrine: Denies: no symptoms, excessive sweating, flushing, intolerance to cold, intolerance to heat, increased hunger, increased thirst, increased urine, unexplained weight gain, unexplained weight loss, other Hematologic/Lymphatic: Denies: no symptoms, anemia, easy bleeding, easy bruising, other Allergies: Coded Allergies: No Known Allergies (Unverified , 05/25/16) Subjective no events, no fevers or chills reported, serology pending Objective Last 24 Hour Vital Signs Date Time Temp Pulse Resp B/P (MAP) Pulse Ox O2 Delivery O2 Flow Rate FiO2 08/27/17 12:00 98.0 20 111/65 98 Room Air 98.0 08/27/17 08:00 98.2 57 20 106/56 98 Room Air 98.2 08/27/17 00:00 98.2 59 18 111/63 98 Room Air 98.2 08/26/17 20:00 98.4 64 18 100/63 98 Room Air 98.4 08/26/17 16:00 98.8 56 17 116/60 97 Room Air 98.8 Intake and Output 08/26/17 08/27/17 19:00 07:00 Intake Total 1100 ml 1600 ml Output Total 1150 ml Balance -50 ml 1600 ml Intake Oral 600 ml IV Total 1100 ml 1000 ml Output Urine Total 1150 ml # Voids 2 2 Laboratory Tests 08/26/17 14:10: Reticulocyte Count 0.5, Prothrombin Time 11.0, Prothromb Time International Ratio 1.1, Iron Level 50, Total Iron Binding Capacity 215L, Percent Iron Saturation 23, Unsaturated Iron Binding 165, Ferritin 72, Lactate Dehydrogenase 130, Vitamin B12 Level 250, Estefany-Figueroa Virus Capsid Ag IgG Ab [Pending], Estefany-Figueroa Virus Capsid Ag IgM Ab [Pending], Hepatitis A IgM Antibody [Pending ], Hepatitis B Surface Antigen [Pending], Hepatitis B Core IgM Antibody [Pending ], Hepatitis C Antibody [Pending], HIV (1&2) Antibody Rapid Preliminary positiveH Height (Feet): 5 Height (Inches): 11.00 Weight (Pounds): 166 General Appearance: no apparent distress EENT: TMs normal Neck: normal alignment Cardiovascular: regular rhythm Respiratory/Chest: no respiratory distress Abdomen: no organomegaly Extremities: non-tender Edema: 1+ Arm (L), 1+ Arm (R), 1+ Leg (L), 1+ Leg (R), 1+ Pedal (L) Edema: mild edema 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 MD August 27, 2017 12:38
[2017-08-27 16:00] VITALS: BP 104/57
--- NOTE | 2017-08-27 18:12 | Internal Med Progress Note ---
Subjective Physician Name BladimirWilmer kramer Attending Physician Bibiana Wen MD Current Medications Medications (Trade) Dose Ordered Sig/Melinda Route PRN Reason Start Time Stop Time Status Last Admin Dose Admin Acetaminophen (Tylenol) 650 mg Q4H PRN ORAL fever 08/25/17 13:15 09/24/17 13:14 Acetaminophen/ Hydrocodone Bitart ([place] 10/325) 1 tab Q4H PRN ORAL Moderate Pain (Pain Scale 4-6) 08/25/17 13:15 09/01/17 13:14 Dextrose (Dextrose 50%) 25 ml STAT PRN IV Hypoglycemia 08/25/17 13:15 09/24/17 13:14 Dextrose (Dextrose 50%) 50 ml STAT PRN IV Hypoglycemia 08/25/17 13:15 09/24/17 13:14 Iopamidol (Isovue-300 100ml) 100 ml NOW PRN INJ Radiology Procedure 08/25/17 07:15 08/27/17 23:59 Lorazepam (Ativan) 1 mg Q4H PRN ORAL For Anxiety 08/25/17 13:15 09/01/17 13:14 Morphine Sulfate (Morphine Sulfate) 4 mg Q4H PRN IVP Severe Pain (Pain Scale 7-10) 08/25/17 13:30 09/01/17 13:29 08/25/17 13:40 Ondansetron HCl (Zofran) 4 mg Q6H PRN IVP Nausea & Vomiting 08/25/17 13:30 09/24/17 13:29 Patient Own Medication (Patient's Own Med) 1 ea QHS ORAL 08/25/17 22:00 09/24/17 21:59 08/26/17 20:28 Polyethylene Glycol (Miralax) 17 gm BEDTIME ORAL 08/25/17 21:00 09/24/17 20:59 08/26/17 20:28 Sodium Chloride 1,000 ml @ 100 mls/hr Q10H IVLG 08/25/17 14:00 09/24/17 13:59 08/27/17 15:57 Trimethoprim/ Sulfamethoxazole (Bactrim-DS) 1 tab 3XW ORAL 08/25/17 22:00 09/01/17 21:59 08/25/17 21:09 Allergies: Coded Allergies: No Known Allergies (Unverified , 05/25/16) Objective Last Vital Signs Date Time Temp Pulse Resp B/P (MAP) Pulse Ox O2 Delivery O2 Flow Rate FiO2 08/27/17 16:00 98.6 65 20 104/57 97 Room Air 98.6 Microbiology Date/Time Source Procedure Growth Status 08/25/17 16:18 Urine,Clean Catch Urine Culture - Preliminary Mixed Gram Positive Organism Resulted Intake and Output 08/26/17 08/27/17 19:00 07:00 Intake Total 1100 ml 1600 ml Output Total 1150 ml Balance -50 ml 1600 ml Intake Oral 600 ml IV Total 1100 ml 1000 ml Output Urine Total 1150 ml # Voids 2 2 Assessment/Plan Assessment/Plan No Known Allergies (Unverified , 05/25/16) Medication History Scheduled Bacitracin (Bacitracin), 1 APPLIC TOPIC THREE TIMES A DAY Trimethoprim/Sulfamethoxazole 160/800* (Bactrim Ds Tablet*), 1 TAB ORAL TWICE A DAY [bictarvy], 1 DAILY, (Reported) Patient History History Provided By: Patient Healthcare decision maker Resuscitation status Full Code Advanced Directive on File ROS Review of Systems All Other Systems: negative except mentioned in HPI Physical Exam Physical Exam General Appearance: alert, moderate distress HEENT: normocephalic, atraumatic, PERRL Neck: non-tender, normal alignment, supple Respiratory/Chest: chest wall non-tender, lungs clear, normal breath sounds Cardiovascular/Chest: normal peripheral pulses, normal rate Abdomen: hypoactive bowel sounds, guarding, tender Extremities: normal range of motion, non-tender Skin Exam: normal pigmentation, warm/dry 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, no motor/sensory deficits, alert, oriented x 3 Last 24 Hour Vital Signs Date Time Temp Pulse Resp B/P (MAP) Pulse Ox O2 Delivery O2 Flow Rate FiO2 08/25/17 12:00 97.9 58 20 107/59 100 Room Air 97.9 08/25/17 11:08 98.0 70 16 102/62 100 Room Air 98.0 08/25/17 10:50 98.0 70 16 102/62 100 Room Air 98.0 08/25/17 09:37 36.8 08/25/17 09:36 36.8 08/25/17 09:36 98.3 08/25/17 09:36 36.8 08/25/17 09:36 98.3 08/25/17 09:30 98.0 72 17 121/70 100 Room Air 98.0 08/25/17 08:32 16 122/75 99 Room Air 08/25/17 08:32 98.3 08/25/17 08:32 98.3 08/25/17 07:43 98.3 08/25/17 07:01 98.3 68 16 122/75 99 Room Air 98.2 Laboratory Tests Test 08/25/17 07:10 08/25/17 07:15 08/25/17 09:14 White Blood Count 4.5 K/UL (4.8-10.8) L Red Blood Count 5.00 M/UL (4.70-6.10) Hemoglobin 14.2 G/DL (14.2-18.0) Hematocrit 42.3 % (42.0-52.0) Mean Corpuscular Volume 85 FL (80-99) Mean Corpuscular Hemoglobin 28.4 PG (27.0-31.0) Mean Corpuscular Hemoglobin Concent 33.6 G/DL (32.0-36.0) Red Cell Distribution Width 12.3 % (11.6-14.8) Platelet Count 55 K/UL (150-450) L Mean Platelet Volume 10.5 FL (6.5-10.1) H Neutrophils (%) (Auto) % (45.0-75.0) Lymphocytes (%) (Auto) % (20.0-45.0) Monocytes (%) (Auto) % (1.0-10.0) Eosinophils (%) (Auto) % (0.0-3.0) Basophils (%) (Auto) % (0.0-2.0) Differential Total Cells Counted 100 Neutrophils % (Manual) 70 % (45-75) Lymphocytes % (Manual) 20 % (20-45) Monocytes % (Manual) 4 % (1-10) Eosinophils % (Manual) 4 % (0-3) H Basophils % (Manual) 1 % (0-2) Band Neutrophils 1 % (0-8) Platelet Estimate Decreased L Platelet Morphology Normal Red Blood Cell Morphology Normal Sodium Level 140 MMOL/L (136-145) Potassium Level 4.4 MMOL/L (3.5-5.1) Chloride Level 104 MMOL/L (98-107) Carbon Dioxide Level 29 MMOL/L (21-32) Anion Gap 7 mmol/L (5-15) Blood Urea Nitrogen 10 mg/dL (7-18) Creatinine 1.1 MG/DL (0.55-1.30) Estimat Glomerular Filtration Rate > 60 mL/min (>60) Glucose Level 141 MG/DL (74-106) H Calcium Level 8.7 MG/DL (8.5-10.1) Total Bilirubin 0.1 MG/DL (0.2-1.0) L Aspartate Amino Transf (AST/SGOT) 22 U/L (15-37) Alanine Aminotransferase (ALT/SGPT) 26 U/L (12-78) Alkaline Phosphatase 62 U/L (46-116) Creatine Kinase MB 0.6 NG/ML (0.0-3.6) Total Protein 8.0 G/DL (6.4-8.2) Albumin 3.8 G/DL (3.4-5.0) Globulin 4.2 g/dL Albumin/Globulin Ratio 0.9 (1.0-2.7) L Lipase 99 U/L (73-393) Prothrombin Time 10.4 SEC (9.30-11.50) Prothromb Time International Ratio 1.0 (0.9-1.1) Activated Partial Thromboplast Time 25 SEC (23-33) Urine Color Pale yellow Urine Appearance Clear Urine pH 5 (4.5-8.0) Urine Specific [place] 1.010 (1.005-1.035) Urine Protein Negative (NEGATIVE) Urine Glucose (UA) Negative (NEGATIVE) Urine Ketones Negative (NEGATIVE) Urine Occult Blood Negative (NEGATIVE) Urine Nitrite Negative (NEGATIVE) Urine Bilirubin Negative (NEGATIVE) Urine Urobilinogen Normal MG/DL (0.0-1.0) Urine Leukocyte Esterase Negative (NEGATIVE) Height (Feet): 5 Height (Inches): 11.00 Weight (Pounds): 166 Medications Current Medications Medications (Trade) Dose Ordered Sig/Melinda Route PRN Reason Start Time Stop Time Status Last Admin Dose Admin Acetaminophen (Tylenol) 650 mg Q4H PRN ORAL fever 08/25/17 13:15 09/24/17 13:14 Acetaminophen/ Hydrocodone Bitart ([place] 10/325) 1 tab Q4H PRN ORAL Moderate Pain (Pain Scale 4-6) 08/25/17 13:15 09/01/17 13:14 Dextrose (Dextrose 50%) 25 ml STAT PRN IV Hypoglycemia 08/25/17 13:15 09/24/17 13:14 Dextrose (Dextrose 50%) 50 ml STAT PRN IV Hypoglycemia 08/25/17 13:15 09/24/17 13:14 Iopamidol (Isovue-300 100ml) 100 ml NOW PRN INJ Radiology Procedure 08/25/17 07:15 08/27/17 23:59 Lorazepam (Ativan) 1 mg Q4H PRN ORAL For Anxiety 08/25/17 13:15 09/01/17 13:14 Morphine Sulfate (Morphine Sulfate) 4 mg Q4H PRN IVP Severe Pain (Pain Scale 7-10) 08/25/17 13:30 09/01/17 13:29 08/25/17 13:40 Non-Formulary Medication (Non-Formulary Med) 1 ea DAILY ORAL 08/26/17 09:00 09/25/17 08:59 UNV Ondansetron HCl (Zofran) 4 mg Q6H PRN IVP Nausea & Vomiting 08/25/17 13:30 09/24/17 13:29 Polyethylene Glycol (Miralax) 17 gm BEDTIME ORAL 08/25/17 21:00 09/24/17 20:59 Sodium Chloride 1,000 ml @ 100 mls/hr Q10H IVLG 08/25/17 14:00 09/24/17 13:59 08/25/17 14:21 Sodium Chloride 1,000 ml @ 100 mls/hr Q10H ONCE IV 08/25/17 07:14 08/25/17 17:13 08/25/17 07:21 Trimethoprim/ Sulfamethoxazole (Bactrim-DS) 1 tab 3XW ORAL 08/28/17 09:00 09/04/17 08:59 Assessment/Plan Assessment/Plan Problem List: (1) Enteritis ICD Codes: K52.9 - Noninfective gastroenteritis and colitis, unspecified SNOMED: 40191850 (2) Abdominal pain ICD Codes: R10.9 - Unspecified abdominal pain SNOMED: 77494278 (3) Dilated cbd, acquired ICD Codes: K83.8 - Other specified diseases of biliary tract SNOMED: 296286258 (4) Thrombocytopenia associated with AIDS ICD Codes: B20 - Human immunodeficiency virus [HIV] disease; D69.59 - Other secondary thrombocytopenia SNOMED: 365712871 Status: stable, progressing Assessment/Plan - 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 Borderline hepatomegaly, splenomegaly. CBD 11mm. - f/u abdominal U/S - LFTs and t. bili normal. continue to monitor - pain control and supportive care - zofran prn - IVF - CLD and ADAT - continue home HIV meds. Continue bactrim for ppx - check CD4 count - monitor plt. avoid HSQ DVT Prophylaxis: SCD Code Status: Full Hospital Classification Declaration: Based on this initial evaluation, and depending on the patient's clinical course, I anticipate that this patient will require hospitalization for 2-3 days for severe abd pain, CBD and close respiratory/hemodynamic monitoring. Disposition: Once the patient is stable to leave the hospital, I anticipate the patient will likely be discharged to the following environment: home Wilmer Linn M.D. August 27, 2017 18:12
[2017-08-27 20:00] VITALS: BP 111/69
[2017-08-27] MEDS: Miralax 17gm pkt ORAL SCH (20:20)
[2017-08-28] VITALS: BP 114/60
[2017-08-28 08:00] VITALS: BP 101/64
[2017-08-28] MEDS: Bactrim-DS 1 tab ORAL SCH (08:19)
--- NOTE | 2017-08-28 08:45 | General Progress Note ---
Assessment/Plan Assessment/Plan 1. Splenomegaly, multiple causes are possible. Potentially, this could be from either infection and/or history of cirrhosis, portal HTN, most likely from HIV but must rule out other causes --> Consider to obtain Infectious Disease evaluation. Unlikely leukemia or lymphoma. --> The patient has a very poor control of underlying human immunodeficiency virus/acquired immunodeficiency syndrome. --> again stressed importance of medication compliance and he is in agreement 2. Pancytopenia, likely related to underlying human immunodeficiency virus/ acquired immunodeficiency syndrome. Also, rule out lymphoma in the outpatient setting. The patient's splenomegaly at this time is mild to moderate. Likely hiv related 3. Human immunodeficiency virus/acquired immunodeficiency syndrome. Consider to obtain Infectious Disease evaluation. Continue the patient on Bactrim, but that can also contribute to the patient's splenomegaly. 4. Anemia due to underlying chronic disease. Closely monitor for improvement. 5. Decreased CD4 count, likely related to underlying human immunodeficiency virus/acquired immunodeficiency syndrome. 6. Enteritis. Bowel regimen prn Subjective Constitutional: Denies: no symptoms, chills, diaphoresis, fever, malaise, weakness, other HEENT: Denies: no symptoms, eye pain, blurred vision, tearing, double vision, ear pain, ear discharge, nose pain, nose congestion, throat pain, throat swelling, mouth pain, mouth swelling, other Cardiovascular: Denies: no symptoms, chest pain, edema, irregular heart rate, lightheadedness, palpitations, syncope, other Respiratory: Denies: no symptoms, cough, orthopnea, shortness of breath, SOB with excertion, SOB at rest, sputum, stridor, wheezing, other Gastrointestinal/Abdominal: Denies: no symptoms, abdomen distended, abdominal pain, black stools, tarry stools, blood in stool, constipated, diarrhea, difficulty swallowing, nausea, poor appetite, poor fluid intake, rectal bleeding , vomiting, other Genitourinary: Denies: no symptoms, burning, discharge, frequency, flank pain, hematuria, incontinence, pain, urgency, other Neurologic/Psychiatric: Denies: no symptoms, anxiety, depressed, emotional problems, headache, numbness, paresthesia, pre-existing deficit, seizure, tingling, tremors, weakness, other Endocrine: Denies: no symptoms, excessive sweating, flushing, intolerance to cold, intolerance to heat, increased hunger, increased thirst, increased urine, unexplained weight gain, unexplained weight loss, other Hematologic/Lymphatic: Denies: no symptoms, anemia, easy bleeding, easy bruising, other Allergies: Coded Allergies: No Known Allergies (Unverified , 05/25/16) Subjective no events, no fevers or chills reported, CD4 is pending Objective Last 24 Hour Vital Signs Date Time Temp Pulse Resp B/P (MAP) Pulse Ox O2 Delivery O2 Flow Rate FiO2 08/28/17 00:00 98.3 63 20 114/60 96 98.3 08/27/17 20:00 98.5 70 20 111/69 100 98.5 08/27/17 16:00 98.6 65 20 104/57 97 Room Air 98.6 08/27/17 12:00 98.0 20 111/65 98 Room Air 98.0 Intake and Output 08/27/17 08/28/17 19:00 07:00 Intake Total 2800 ml 710 ml Output Total 300 ml 550 ml Balance 2500 ml 160 ml Intake Oral 1600 ml 100 ml IV Total 1200 ml 610 ml Output Urine Total 300 ml 550 ml # Voids 4 Height (Feet): 5 Height (Inches): 11.00 Weight (Pounds): 166 General Appearance: alert EENT: pharynx normal Neck: normal alignment Cardiovascular: regular rhythm Respiratory/Chest: lungs clear Abdomen: no organomegaly Extremities: non-tender Edema: 1+ Leg (L), 1+ Leg (R) Edema: mild edema Neurologic: alert Virgil Vines MD August 28, 2017 08:45
[2017-08-28] MEDS ORDERED: Bactrim-DS 1 tab ORAL SCH (09:00)
[2017-08-28 12:00] VITALS: BP 146/86
[2017-08-28 16:00] VITALS: BP 105/65
[2017-08-28 20:00] VITALS: BP 113/71
[2017-08-28] MEDS: Miralax 17gm pkt ORAL SCH (20:19)
--- NOTE | 2017-08-28 23:17 | General Progress Note ---
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 appreciate rec's - CT a/p showing prominent fluid-filled small bowel loops. Borderline hepatomegaly, splenomegaly. CBD 11mm. - abdominal U/S noted - LFTs and t. bili normal. continue to monitor - pain control and supportive care - zofran prn - IVF - regular diet - continue home HIV meds. Continue bactrim for ppx - check CD4 count - monitor plt. avoid HSQ PENDING DC TO HOME IN AM AFTER GI CLEARANCE DVT Prophylaxis: SCD Code Status: Full Hospital Classification Declaration: Based on this initial evaluation, and depending on the patient's clinical course, I anticipate that this patient will require hospitalization for 2-3 days for severe abd pain, CBD and close respiratory/hemodynamic monitoring. Disposition: Once the patient is stable to leave the hospital, I anticipate the patient will likely be discharged to the following environment: home Subjective Date patient seen: August 28, 2017 Time patient seen: 11:00 Allergies: Coded Allergies: No Known Allergies (Unverified , 05/25/16) Subjective - abdominal pain resolved - AF, HDS - CD4 count pending Objective Last 24 Hour Vital Signs Date Time Temp Pulse Resp B/P (MAP) Pulse Ox O2 Delivery O2 Flow Rate FiO2 08/28/17 20:00 98.3 68 20 113/71 98 98.3 08/28/17 16:00 98.3 60 20 105/65 100 Room Air 98.3 08/28/17 12:00 98.0 93 21 146/86 99 Room Air 98.0 08/28/17 08:00 98.3 63 20 101/64 100 Room Air 98.3 08/28/17 00:00 98.3 63 20 114/60 96 98.3 Intake and Output 08/27/17 08/28/17 19:00 07:00 Intake Total 2800 ml 810 ml Output Total 300 ml 550 ml Balance 2500 ml 260 ml Intake Oral 1600 ml 100 ml IV Total 1200 ml 710 ml Output Urine Total 300 ml 550 ml # Voids 4 Height (Feet): 5 Height (Inches): 11.00 Weight (Pounds): 166 General Appearance: no apparent distress, alert EENT: PERRL/EOMI, normal ENT inspection Neck: non-tender, normal alignment, supple Cardiovascular: normal peripheral pulses, normal rate, regular rhythm Respiratory/Chest: chest wall non-tender, lungs clear, normal breath sounds Abdomen: normal bowel sounds, non tender, soft Extremities: normal range of motion, non-tender 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
[2017-08-29] VITALS: BP 114/69
[2017-08-29 08:00] VITALS: BP 116/61
[2017-08-29 08:04] LABS: HEMATOCRIT 37.8 % (42.0-52.0); HEMOGLOBIN 12.8 G/DL (14.2-18.0); MEAN CORPUSCULAR VOLUME 83 FL (80-99); PLATELET COUNT 62 K/UL (150-450); RED BLOOD COUNT 4.55 M/UL (4.70-6.10); RED CELL DISTRIBUTION WIDTH 12.3 % (11.6-14.8)
[2017-08-29 08:06] LABS: WHITE BLOOD COUNT 2.1 K/UL (4.8-10.8)
[2017-08-29 08:21] LABS: ANION GAP 6 mmol/L (5-15); BLOOD UREA NITROGEN 10 mg/dL (7-18); CALCIUM 8.2 MG/DL (8.5-10.1); CARBON DIOXIDE 28 MMOL/L (21-32); CHLORIDE 108 MMOL/L (98-107); CREATININE 1.1 MG/DL (0.55-1.30); POTASSIUM 3.9 MMOL/L (3.5-5.1); SODIUM 141 MMOL/L (136-145)
--- NOTE | 2017-08-29 08:42 | General Progress Note ---
Assessment/Plan Assessment/Plan 1. Splenomegaly, multiple causes are possible. Potentially, this could be from either infection and/or history of cirrhosis, portal HTN, most likely from HIV but must rule out other causes --> Consider to obtain Infectious Disease evaluation. Unlikely leukemia or lymphoma. In addition explains patients wbc that is low --> The patient has a very poor control of underlying human immunodeficiency virus/acquired immunodeficiency syndrome. --> again stressed importance of medication compliance and he is in agreement --> cleared for discharge, followup in 1 week with manager chemical/id/pcp to check cbc 2. Pancytopenia, likely related to underlying human immunodeficiency virus/ acquired immunodeficiency syndrome. Also, rule out lymphoma in the outpatient setting. The patient's splenomegaly at this time is mild to moderate. Likely hiv related 3. Human immunodeficiency virus/acquired immunodeficiency syndrome. Consider to obtain Infectious Disease evaluation. Continue the patient on Bactrim, but that can also contribute to the patient's splenomegaly. 4. Anemia due to underlying chronic disease. Closely monitor for improvement. 5. Decreased CD4 count, likely related to underlying human immunodeficiency virus/acquired immunodeficiency syndrome. 6. Enteritis. Bowel regimen prn Subjective Constitutional: Denies: no symptoms, chills, diaphoresis, fever, malaise, weakness, other HEENT: Denies: no symptoms, eye pain, blurred vision, tearing, double vision, ear pain, ear discharge, nose pain, nose congestion, throat pain, throat swelling, mouth pain, mouth swelling, other Cardiovascular: Denies: no symptoms, chest pain, edema, irregular heart rate, lightheadedness, palpitations, syncope, other Respiratory: Denies: no symptoms, cough, orthopnea, shortness of breath, SOB with excertion, SOB at rest, sputum, stridor, wheezing, other Gastrointestinal/Abdominal: Denies: no symptoms, abdomen distended, abdominal pain, black stools, tarry stools, blood in stool, constipated, diarrhea, difficulty swallowing, nausea, poor appetite, poor fluid intake, rectal bleeding , vomiting, other Genitourinary: Denies: no symptoms, burning, discharge, frequency, flank pain, hematuria, incontinence, pain, urgency, other Neurologic/Psychiatric: Denies: no symptoms, anxiety, depressed, emotional problems, headache, numbness, paresthesia, pre-existing deficit, seizure, tingling, tremors, weakness, other Endocrine: Denies: no symptoms, excessive sweating, flushing, intolerance to cold, intolerance to heat, increased hunger, increased thirst, increased urine, unexplained weight gain, unexplained weight loss, other Allergies: Coded Allergies: No Known Allergies (Unverified , 05/25/16) Subjective no events, no fevers or chills reported, CD4 is pending Objective Last 24 Hour Vital Signs Date Time Temp Pulse Resp B/P (MAP) Pulse Ox O2 Delivery O2 Flow Rate FiO2 08/29/17 00:00 98.5 62 20 114/69 97 98.5 08/28/17 20:00 98.3 68 20 113/71 98 98.3 08/28/17 16:00 98.3 60 20 105/65 100 Room Air 98.3 08/28/17 12:00 98.0 93 21 146/86 99 Room Air 98.0 Intake and Output 08/28/17 08/29/17 19:00 07:00 Intake Total 3000 ml 1500 ml Output Total 3800 ml 700 ml Balance -800 ml 800 ml Intake Oral 2000 ml 400 ml IV Total 1000 ml 1100 ml Output Urine Total 3800 ml 700 ml Laboratory Tests 08/29/17 06:50: White Blood Count 2.1*L, Red Blood Count 4.55L, Hemoglobin 12.8L, Hematocrit 37.8L, Mean Corpuscular Volume 83, Mean Corpuscular Hemoglobin 28.2, Mean Corpuscular Hemoglobin Concent 34.0, Red Cell Distribution Width 12.3, Platelet Count 62L, Mean Platelet Volume 10.1, Neutrophils (%) (Auto) , Lymphocytes (%) ( Auto) , Monocytes (%) (Auto) , Eosinophils (%) (Auto) , Basophils (%) (Auto) , Neutrophils % (Manual) [Pending], Lymphocytes % (Manual) [Pending], Platelet Estimate [Pending], Platelet Morphology [Pending], Sodium Level 141, Potassium Level 3.9, Chloride Level 108H, Carbon Dioxide Level 28, Anion Gap 6, Blood Urea Nitrogen 10, Creatinine 1.1, Estimat Glomerular Filtration Rate > 60, Glucose Level 103, Calcium Level 8.2L Height (Feet): 5 Height (Inches): 11.00 Weight (Pounds): 166 General Appearance: no apparent distress EENT: normal ENT inspection Neck: normal alignment Cardiovascular: regular rhythm, no JVD Respiratory/Chest: normal breath sounds Abdomen: non tender Extremities: non-tender Edema: no edema noted Leg (L), no edema noted Leg (R) Edema: mild edema Neurologic: alert Virgil Vines MD August 29, 2017 08:42
[2017-08-29 12:00] VITALS: BP 103/56
--- NOTE | 2017-08-29 14:16 | GI Progress Note ---
Assessment/Plan Problems: (1) Dilated cbd, acquired ICD Codes: K83.8 - Other specified diseases of biliary tract SNOMED: 201577092 (2) Abdominal pain ICD Codes: R10.9 - Unspecified abdominal pain SNOMED: 63621446 (3) Enteritis ICD Codes: K52.9 - Noninfective gastroenteritis and colitis, unspecified SNOMED: 08211441 Status: stable Status Narrative Discussed with Dr. Esquivel. Assessment/Plan CT AP reviewed >> Small bowel feces in the terminal ileum suggests stasis of contrast. abdominal U/S reviewed >> Mildly dilated extra hepatic bile ducts, downstream obstruction not excludable. okay for DC per GI standpoint symptomatic treatment adv diet zofran prn pain mgmt bowel regime ppi fu labs Subjective Gastrointestinal/Abdominal: Reports: no symptoms Objective Last 24 Hour Vital Signs Date Time Temp Pulse Resp B/P (MAP) Pulse Ox O2 Delivery O2 Flow Rate FiO2 08/29/17 12:00 98.2 61 19 103/56 98 Room Air 98.2 08/29/17 11:24 60 08/29/17 08:00 98.4 52 18 116/61 99 Room Air 98.4 08/29/17 00:00 98.5 62 20 114/69 97 98.5 08/28/17 20:00 98.3 68 20 113/71 98 98.3 08/28/17 16:00 98.3 60 20 105/65 100 Room Air 98.3 Intake and Output 08/28/17 08/29/17 19:00 07:00 Intake Total 3000 ml 1500 ml Output Total 3800 ml 700 ml Balance -800 ml 800 ml Intake Oral 2000 ml 400 ml IV Total 1000 ml 1100 ml Output Urine Total 3800 ml 700 ml Laboratory Tests Test 08/29/17 06:50 White Blood Count 2.1 K/UL (4.8-10.8) *L Red Blood Count 4.55 M/UL (4.70-6.10) L Hemoglobin 12.8 G/DL (14.2-18.0) L Hematocrit 37.8 % (42.0-52.0) L Mean Corpuscular Volume 83 FL (80-99) Mean Corpuscular Hemoglobin 28.2 PG (27.0-31.0) Mean Corpuscular Hemoglobin Concent 34.0 G/DL (32.0-36.0) Red Cell Distribution Width 12.3 % (11.6-14.8) Platelet Count 62 K/UL (150-450) L Mean Platelet Volume 10.1 FL (6.5-10.1) Neutrophils (%) (Auto) % (45.0-75.0) Lymphocytes (%) (Auto) % (20.0-45.0) Monocytes (%) (Auto) % (1.0-10.0) Eosinophils (%) (Auto) % (0.0-3.0) Basophils (%) (Auto) % (0.0-2.0) Differential Total Cells Counted 100 Neutrophils % (Manual) 27 % (45-75) L Lymphocytes % (Manual) 58 % (20-45) H Monocytes % (Manual) 11 % (1-10) H Eosinophils % (Manual) 4 % (0-3) H Basophils % (Manual) 0 % (0-2) Band Neutrophils 0 % (0-8) Platelet Estimate Decreased L Platelet Morphology Normal Red Blood Cell Morphology Normal Sodium Level 141 MMOL/L (136-145) Potassium Level 3.9 MMOL/L (3.5-5.1) Chloride Level 108 MMOL/L (98-107) H Carbon Dioxide Level 28 MMOL/L (21-32) Anion Gap 6 mmol/L (5-15) Blood Urea Nitrogen 10 mg/dL (7-18) Creatinine 1.1 MG/DL (0.55-1.30) Estimat Glomerular Filtration Rate > 60 mL/min (>60) Glucose Level 103 MG/DL (74-106) Calcium Level 8.2 MG/DL (8.5-10.1) L Height (Feet): 5 Height (Inches): 11.00 Weight (Pounds): 166 General Appearance: WD/WN, no apparent distress, alert Cardiovascular: normal rate Respiratory/Chest: normal breath sounds, no respiratory distress Abdominal Exam: normal bowel sounds, non tender, soft Extremities: normal range of motion, non-tender Caleb Arias MARKETING SUPPORT SPECIALIST August 29, 2017 14:16
--- NOTE | 2017-08-29 22:29 | Discharge Summary ---
Discharge Summary Hospital Course Date of Admission August 25, 2017 at 09:24 Date of Discharge August 29, 2017 at 15:53 Admitting Diagnosis intractable abdominal pain, Dilated Common bile du HPI Telly Hinton is a 36 year old male who was admitted on August 25, 2017 at 09:24 for Intractable Abdominal Pain, Dilated Common Bile Duct 36 y/o male with a PMH of HIV now AIDS with CD4 count less than 200 who presented to the ED for severe abdominal pain. Patient states that the pain started this morning on the RUQ area radiating to the left epigastric are . Reports nausea but no vomiting. CT a/p showed somewhat prominent fluid-filled small bowel loops. CBD 11mm. Normal appendix, borderline hepatomegaly and splenomegaly. Abdominal ultrassound was also done with results pending. Patient was further admitted. Denies chest pain, sob, f/c. He also states that he has been diagnosed with HIV since age 18 but was off of his HIV medications for the last 4 years. He states he recently got back on them and his recent CD4 count a month ago was less than 200 and started taking bactrim prophylactically. Consultations Hematology, Dr. Vines GI, Dr. Esquivel General surgery, Dr. Orlando Hospital Course Patient was admitted and underwent a CT which showed dilated extrahepatic ducts , CBD of 11mm and enteritis. GI and general surgery were consulted. No interventions per general surgery was indicated. Per GI, patient was started on clear liquid diet and was advanced to regular. Patient was also started on IVF. Patient tolerated diet well with no n/v and abdominal pain resolved. Hematology was also consulted given low platelet count. This was monitored throughout hospital course with no acute changes. Per county engineer, this is likely secondary to HIV. Patient was hemodynamically stable prior to discharge. Patient was cleared per general surgery and GI and was discharged home. Discharge Medications Continued Medications: Bacitracin (Bacitracin) 28.4 Gm Oint...g. 1 APPLIC TOPIC THREE TIMES A DAY, #28 GM [bictarvy] () 1 DAILY Trimethoprim/Sulfamethoxazole 160/800* (Bactrim Ds Tablet*) 1 Each Tablet 1 TAB ORAL TWICE A DAY, #14 TAB Discharge Condition Upon Discharge: stable Discharge Disposition Patient was discharged to Home (01) Discharge Diagnoses: (1) Thrombocytopenia associated with AIDS (2) Dilated cbd, acquired Glenny Ybarra NP August 29, 2017 22:29
== END 2017-08-29 15:53 | disposition home or self-care (01) | DRG 894 ==
LOC: EMR 07:24 → 4E 09:24 → EDBEDREQ 10:41 → 4E 11:52
DX: K52.9 Noninfective gastroenteritis and colitis, unspecified (principal); B20 Human immunodeficiency virus [HIV] disease; D69.59 Other secondary thrombocytopenia; K83.8 Other specified diseases of biliary tract; R10.9 Unspecified abdominal pain; R16.1 Splenomegaly, not elsewhere classified; D63.8 Anemia in other chronic diseases classified elsewhere
CPT/HCPCS: 36415; 74177; 76700; 80048; 80053; 81003; 82553; 82607; 82728; 83540; 83550; 83615; 83690; 85007; 85025; 85044; 85610; 85730; 86360; 86665; 86689; 86703; 86705; 86709; 86803; 87086; 87340; 99285; J2405

== ENCOUNTER 2017-12-16 12:21 | Emergency (ER) | payer MEDICAID ==
[~2017-12-16] VITALS: Ht 180.3 cm; Wt 72.6 kg
[~2017-12-16 12:21] MED LIST changes: +[UNRECOGNIZED DRUG - OTHER]
[2017-12-16] MEDS ORDERED: Lidocaine 1% Plain 30 ml INJ ONE (12:45)
[2017-12-16] MEDS ORDERED: traMADol 50mg tab ORAL ONE (12:45)
--- NOTE | 2017-12-16 12:53 | Emergency Room Report ---
History of Present Illness General Chief Complaint: Skin Rash/Abscess Source: Patient Present Illness HPI patient is a 37-year-old male with history of HIV positive here for a few days of abscess on the buttocks. She is reporting that this morning he noticed pus drainage and pressure in the buttocks area denies bleeding denies constipation. Denies fever and chills. Patient is rating pain 10 out of 10 with no radiation has not taken anything for pain. Denies chest pain, SOB, and is only taking HIV positive medication. With his immunizations especially with Tdap Allergies: Coded Allergies: No Known Allergies (Unverified , 12/16/17) Patient History Past Medical History: see triage record Immunizations: UTD Reviewed Nursing Documentation: PMH: Agreed; PSxH: Agreed Nursing Documentation-PMH Past Medical History: No History, Except For Hx Cardiac Problems: No - HIV+ Hx Cancer: No Hx Gastrointestinal Problems: No Hx Neurological Problems: No Review of Systems All Other Systems: negative except mentioned in HPI Physical Exam Vital Signs Date Time Temp Pulse Resp B/P (MAP) Pulse Ox O2 Delivery O2 Flow Rate FiO2 12/16/17 12:24 98.1 105 16 128/73 98 Room Air 98.1 Sp02 EP Interpretation: reviewed, normal General Appearance: normal inspection, well appearing, no apparent distress, alert Head: normocephalic Eyes: bilateral eye normal inspection, bilateral eye PERRL ENT: normal ENT inspection, hearing grossly normal Neck: normal inspection, supple Respiratory: normal inspection, lungs clear, no rhonchi, no wheezing, accessory muscle use Cardiovascular #1: normal inspection, no edema, no murmur Gastrointestinal: normal inspection, non tender, soft Rectal: other - abscess around anus Genitourinary: deferred Musculoskeletal: normal inspection, back normal, digits/nails normal Neurologic: normal inspection, alert, oriented x3 Psychiatric: normal inspection, judgement/insight normal, memory normal Skin: other - abscess around anus Lymphatic: normal inspection, no adenopathy Procedures Incision and Drainage Incision and Drainage : Consent: Verbal Blade Size: 11 I & D Procedure: sterile dressing applied Wound Location: pelvis Wound's Depth, Shape: into muscle Wound Explored: contaminated Anesthesia: 1% Lidocaine Volume Anesthetic (ccs): 10 Splint Applied?: No Patient Tolerated: Well Complications: None Medical Decision Making PA Attestation all diagnosis and treatment plans were reviewed and discussed with my supervising physician Diagnostic Impression: Primary Impression: Perianal abscess ER Course patient is a 37-year-old male with history of HIV positive here for a few days of abscess on the buttocks. She is reporting that this morning he noticed pus drainage and pressure in the buttocks area denies bleeding denies constipation. Denies fever and chills. Patient is rating pain 10 out of 10 with no radiation has not taken anything for pain. Denies chest pain, SOB, and is only taking HIV positive medication. With his immunizations especially with Tdap Ddx considered but are not limited to perianal abscess, anal fistula, hidradenitis suppurativa Vital signs: are WNL, pt. is afebrile H&PE are most consistent with perianal abscess ORDERS: lidocaiNe 1 percent, tramadol 50 Bactrim DS ED INTERVENTIONS:I and D DISCHARGE: At this time pt. is stable for d/c to home. Will provide printed patient care instructions, and any necessary prescriptions. Care plan and follow up instructions have been discussed with the patient prior to discharge. Last Vital Signs Date Time Temp Pulse Resp B/P (MAP) Pulse Ox O2 Delivery O2 Flow Rate FiO2 12/16/17 12:24 98.1 105 16 128/73 98 Room Air 98.1 Disposition: HOME, SELF-CARE Condition: Stable Scripts Naproxen* (NAPROXEN*) 500 Mg Tablet 500 MG ORAL TWICE A DAY, #30 TAB Prov: Janny Lara 12/16/17 Mupirocin (BACTROBAN CR) 15 Gm Cream..g. 1 APPLIC TOPIC THREE TIMES A DAY, #60 GM Prov: Janny Lara 12/16/17 Trimethoprim/Sulfamethoxazole (Bactrim Ds Tablet) 1 Each Tablet 1 TAB ORAL TWICE A DAY for 10 Days, #20 TAB Prov: Janny Lara 12/16/17 Referrals: NON PHYSICIAN (PCP) Patient Instructions: Abscess Additional Instructions: finish antibiotics, follow with the primary care provider and Gen. surgery for checking possible tract formation and fistula formation. if fever and chills return to the emergency room Janny Lara Dec 16, 2017 12:53
[2017-12-16] MEDS ORDERED: BACTRIM-DS1 EA ORAL (13:40)
[2017-12-16] MEDS ORDERED: NAPROXEN500 M2 ORAL (13:40)
[2017-12-16] MEDS ORDERED: BACTROBAN15 GM TOPIC (13:40)
[2017-12-16 14:10] VITALS: BP 128/73
== END 2017-12-16 14:10 | disposition home or self-care (01) ==
LOC: EMR 12:36
DX: K61.0 Anal abscess (principal)
CPT/HCPCS: 10060; 87070; 87181; 87205; 96372; 99283; J2001